=== PATIENT | male | born 1965 | race African-American/Black ===

== ENCOUNTER 2021-03-03 08:08 | Observation (INO) ==
[2021-03-03 09:02] LABS: Basophils % 0.3 % (0.0-0.8); Eosinophils # 0.1 10*3/uL (0.0-0.87); Eosinophils % 2.1 % (0.00-10.9); Hemoglobin 13.6 GM/DL (14.0-18.0); Immature Granulocytes % 0.5 %; Immature Granulocytes Absolute 0.02 #; Lymphocytes # 1.9 10*3/uL (1.4-4.0); Lymphocytes % 50.1 % (21.2-54.2); Mean Corpuscular HGB Conc 31.6 GM/DL (32-36); Mean Corpuscular Volume 82.1 FL (87-102); Mean Platelet Volume 8.3 FL (9.6-12.0); Monocytes % 8.1 % (1.7-12.7); Neutrophils % 38.9 % (38.7-73.9); Platelet Count 238 T/CUMM (130-400); Red Blood Count 5.24 MC/CUMM (3.8-5.5); Red Cell Distribution Width 13.2 % (9.3-17.3); White Blood Count 3.8 T/CUMM (4-12)
[2021-03-03 09:20] LABS: PT Patient Result 11.2 SECS (10.5-12.0); Partial Thromboplastin Time 24.5 SECS (23.8-32.1)
[2021-03-03 09:31] LABS: Albumin 4.1 G/DL (3.4-5.0); Calcium 9.3 MG/DL (8.5-10.1); Osmolality,Calculated 275.5 MOS/KG (273-304); Potassium 3.9 MMOL/L (3.5-5.1); Total Protein 6.9 G/DL (6.4-8.2)
[2021-03-03 10:42] LABS: Bilirubin,Urine Negative (Negative); Blood, Urine Negative (Negative); Glucose,Urine (UA) Negative (Negative); Ketones,Urine Negative (Negative); Mucus,Urine Occasional /LPF (Occasional); Nitrite,Urine Negative (Negative); Protein,Urine Negative; RBC,Urine 1 /HPF (0-4); Squamous Epithelial Cell,Urine Occasional /HPF (0-10); Urine Appearance CLEAR (Clear); Urine Color Yellow (Yellow); Urine Specific Gravity 1.023 (1.001-1.035); Urine Urobilinogen < 2.0 EU/DL (0.2-1.0)
[2021-03-03 11:08] LABS: Barbiturates Screen,Urine Negative (Negative); Benzodiazepines Screen,Urine Negative (Negative); Cannabinoid Screen,Urine Negative (Negative); Opiate Screen,Urine Positive (Negative); Phencyclidine Screen,Urine Negative (Negative)
[2021-03-03] MEDS ORDERED: ONDANSETRON 4 MG/2 ML VIAL IV PRN (11:15)
[2021-03-03] MEDS ORDERED: guaiFENesin/DM ER 600-30 MG TABLET PO PRN (11:15)
[2021-03-03] MEDS ORDERED: DEXTROSE 50% 25 GM/50 ML VIAL IV PRN (11:15)
[2021-03-03] MEDS ORDERED: hydrALAZINE 20 MG/1 ML VIAL IV PRN (11:15)
[2021-03-03] MEDS ORDERED: ACETAMINOPHEN 325 MG TABLET PO PRN (11:15)
[2021-03-03] MEDS ORDERED: GLUCAGON 1 MG VIAL IM PRN (11:15)
[2021-03-03 11:46] LABS: Risk Ratio 2.02; Thyroid Stimulating Hormone 0.496 uIU/ml (0.358-3.74); VLDL Cholesterol 11.4 MG/DL
[2021-03-03] MEDS ORDERED: tiZANidine 4 MG TABLET PO PRN (12:14)
[2021-03-03] MEDS ORDERED: ALBUTEROL 1.25 MG/3 ML NEB RESP TX PRN (12:20)
[2021-03-03] MEDS ORDERED: INFLUENZA VIRUS VACCINE 0.5 ML SYRINGE IM ONE (16:08)
[2021-03-03] MEDS ORDERED: MELATONIN 3 MG TABLET PO PRN (18:39)
[2021-03-03] MEDS: BUDESONIDE/FORMOTEROL 160-4.5 INHALER 6 GM INH SCH (20:57)
[2021-03-03] MEDS: APIXABAN 5 MG TABLET PO SCH (20:58)
[2021-03-03] MEDS ORDERED: ATORVASTATIN 20 MG TABLET PO SCH (21:00)
[2021-03-04 06:26] LABS: Basophils % 0.7 % (0.0-0.8); Eosinophils # 0.1 10*3/uL (0.0-0.87); Eosinophils % 1.9 % (0.00-10.9); Hematocrit 42.2 VOL% (42.0-52.0); Immature Granulocytes % 0.2 %; Immature Granulocytes Absolute 0.01 #; Lymphocytes # 1.9 10*3/uL (1.4-4.0); Mean Corpuscular HGB Conc 33.2 GM/DL (32-36); Mean Corpuscular Volume 81.2 FL (87-102); Mean Platelet Volume 8.2 FL (9.6-12.0); Monocytes % 7.2 % (1.7-12.7); Platelet Count 227 T/CUMM (130-400); White Blood Count 4.2 T/CUMM (4-12)
[2021-03-04 06:46] LABS: Albumin 3.8 G/DL (3.4-5.0); Bilirubin,Total 0.5 MG/DL (0.20-1.00); Osmolality,Calculated 271.7 MOS/KG (273-304); Potassium 3.2 MMOL/L (3.5-5.1); Total Protein 6.8 G/DL (6.4-8.2)
[2021-03-04] MEDS ORDERED: POTASSIUM CHLORIDE 20 MEQ TABLET PO ONE (07:31)
[2021-03-04] MEDS: APIXABAN 5 MG TABLET PO SCH (08:15)
[2021-03-04] MEDS: BUDESONIDE/FORMOTEROL 160-4.5 INHALER 6 GM INH SCH (08:16)
[2021-03-04] MEDS ORDERED: POTASSIUM CHLORIDE 20 MEQ TABLET PO SCH (09:00)
[2021-03-04] MEDS ORDERED: PANTOPRAZOLE 40 MG TABLET PO SCH (09:00)
[2021-03-04] MEDS ORDERED: CALCIUM (CARBONATE)/VITAMIN D 600 MG-400 UNIT TABLET PO SCH (09:00)
[2021-03-04] MEDS ORDERED: hydroCHLOROthiazide 25 MG TABLET PO SCH (09:00)
[2021-03-04] MEDS ORDERED: INFLUENZA VIRUS VACCINE 0.5 ML SYRINGE IM ONE (16:23)
[2021-03-04 16:52] VITALS: BP 146/78
== END 2021-03-04 16:33 | disposition home or self-care (01) ==
LOC: N.ED 08:08 → N.EDINP 08:08 → N.2W 15:28
PROVIDERS: ADMIT Internal Medicine; ATTEND Internal Medicine